=== PATIENT | male | born 2000 | race Hispanic/Latino ===

== ENCOUNTER → 2019-09-07 17:22 | Outpatient (CLI) | payer OTHER, SELFPAY ==
--- NOTE | 2019-09-07 17:23 | DI.RAD.S_ITS ---
PROCEDURE: XR HAND LT MIN 3V INDICATIONS: pain and swelling, r/o fx TECHNIQUE: 3 views of the left hand acquired. COMPARISON: None. FINDINGS: Bones: No fractures or dislocations. Carpal bones are normally aligned. No suspicious bony lesions. Soft tissues: No suspicious soft tissue calcifications. IMPRESSION: 1. No fracture or dislocation. Dictated by: Tez Grimes M.D. on 09/07/2019 at 16:46 Approved by: Tez Grimes M.D. on 09/07/2019 at 16:47
== END ==
PROVIDERS: Referring Provider Physician Assistant; Visit Provider Physician Assistant
DX: S69.92XA Unspecified injury of left wrist, hand and finger(s), initial encounter (principal); M79.642 Pain in left hand; X58.XXXA Exposure to other specified factors, initial encounter
CPT/HCPCS: 73130

== ENCOUNTER → 2020-06-29 15:06 | Outpatient (ROUT) | payer OTHER, SELFPAY ==
[2020-06-29 16:04] LABS: COVID19 -Nasal RAPID Negative (Negative)
== END ==
PROVIDERS: Visit Provider Family Medicine
DX: Z20.828 Contact with and (suspected) exposure to other viral communicable diseases (principal)
CPT/HCPCS: 87635